=== PATIENT | female | born 2000 ===

== ENCOUNTER 2024-12-14 19:44 | Emergency (ER) | payer BC ==
[2024-12-14] MEDS: Amoxicillin/Clavulanate K 875-125 MG Tab PO ONE (22:54)
[2024-12-14] MEDS: Ibuprofen 600 MG Tab PO ONE (22:54)
[2024-12-14] MEDS: Acetaminophen 500 MG Tab PO ONE (22:55)
== END 2024-12-14 23:00 | disposition home or self-care (01) ==
LOC: MW.ED 19:44
DX: J10.1 Influenza due to other identified influenza virus with other respiratory manifestations (principal); H66.93 Otitis media, unspecified, bilateral; F17.210 Nicotine dependence, cigarettes, uncomplicated; Z75.8 Other problems related to medical facilities and other health care; Z79.899 Other long term (current) drug therapy
CPT/HCPCS: 87428; 99283; A9270

== ENCOUNTER 2025-06-09 15:45 | Emergency (ER) | payer SELFPAY | END 2025-06-09 15:53 | disposition left against medical advice (07) | LOC: MW.ED 15:45 | DX: Z53.21 Procedure and treatment not carried out due to patient leaving prior to being seen by health care provider (principal) ==